=== PATIENT | female | born 1950 | race Caucasian/White ===

== ENCOUNTER → 2019-03-23 | Outpatient (CLI) | payer MEDICARE ==
[2019-03-23 13:49] LABS: HEMATOCRIT 41.6 % (36.0-47.0); MEAN CORPUSCULAR HEMOGLOBIN 30.2 pg (27.0-33.0); MEAN CORPUSCULAR HGB CONC 31.3 g/dl (32.0-36.5); MEAN CORPUSCULAR VOLUME 96.5 fl (80.0-96.0); PLATELET COUNT, AUTOMATED 267 10^3/uL (150-450); RED BLOOD COUNT 4.31 10^6/uL (4.00-5.40); WHITE BLOOD COUNT 6.6 10^3/uL (4.0-10.0)
[2019-03-23 14:03] LABS: ALBUMIN 3.8 GM/DL (3.2-5.2); ALT/SGPT 14 U/L (12-78); BILIRUBIN,TOTAL 0.7 MG/DL (0.2-1.0); BLOOD UREA NITROGEN 19 MG/DL (7-18); CALCIUM LEVEL 8.8 MG/DL (8.8-10.2); CARBON DIOXIDE LEVEL 30 MEQ/L (21-32); CHLORIDE LEVEL 108 MEQ/L (98-107); CHOLESTEROL LEVEL 177 MG/DL (<200); CHOLESTEROL RISK RATIO 4.425 (<5); CREATININE FOR GFR 0.96 MG/DL (0.55-1.30); GLOMERULAR FILTRATION RATE > 60.0 (>45); GLUCOSE, FASTING 99 MG/DL (70-100); HDL CHOLESTEROL 40 MG/DL (>40); LDL CHOLESTEROL 124 MG/DL (<100); NON-HDL-C 137 MG/DL; POTASSIUM SERUM 4.6 MEQ/L (3.5-5.1); SODIUM LEVEL 143 MEQ/L (136-145); TOTAL PROTEIN 6.9 GM/DL (6.4-8.2); TRIGLYCERIDES LEVEL 64 MG/DL (<150)
== END ==
LOC: M PLALAB 10:05
PROVIDERS: ATTEND Family Medicine
DX: Z00.00 Encounter for general adult medical examination without abnormal findings (principal); E78.00 Pure hypercholesterolemia, unspecified

== ENCOUNTER → 2019-04-15 | Outpatient (CLI) | payer MEDICARE ==
--- NOTE | 2019-04-15 11:04 | REPMRS ---
Patient History The patient states she has not had a clinical breast exam in over a year. Patient is postmenopausal. Family history of breast cancer at age 50 in maternal aunt. Took hormonal contraceptives for 15 years. Digital Woman Screen Mammo: April 15, 2019 - Exam #: [id number] Bilateral CC and MLO view(s) were taken. Technologist: Mirta Lindquist, Technologist Prior study comparison: September 15, 2013, bilateral bilat screen digital mammo, performed at [facility] ([facility]). FINDINGS: The breast tissue is heterogeneously dense. This may lower the sensitivity of mammography. There is a moderate amount of heterogeneously dense fibroglandular tissue which is fairly symmetric. There is no interval development of dominant mass, architectural distortion, or grouped microcalcification typical of malignancy. There has been no change in the appearance of the mammogram from the prior studies. 3-D tomosynthesis shows no additional findings. Assessment: BI-RADS/ACR category 1 mammogram. Negative Mammogram. Recommendation Routine screening mammogram of both breasts in 1 year (for women over age 40). This patient's Lifetime Breast Cancer RIsk is estimated at 7.7 %. This mammogram was interpreted with the aid of an FDA-approved computer-aided dectection system. Electronically Signed By: Akbar Claudio MD 04/15/19 [id number]
== END ==
LOC: M WHC 06:45
PROVIDERS: ATTEND Family Medicine
DX: Z12.31 Encounter for screening mammogram for malignant neoplasm of breast (principal)

== ENCOUNTER 2020-04-02 16:36 | Emergency (ER) | payer MEDICARE ==
[~2020-04-02] VITALS: Ht 152.4 cm; Wt 42.3 kg
--- OUTSIDE RECORDS SUMMARY | 2020-04-02 16:42 | CCD ---
Author Author [facility] Organization [facility] Address Unknown Phone Unavailable Care Team Providers Care [facility] Services Specialist Name Role Phone Steven Tomas MD Unavailable Unavailable Steven Tomas MD Unavailable Unavailable Steven Tomas MD Unavailable Unavailable Steven Tomas MD Unavailable Unavailable Steven Tomas MD Unavailable Unavailable Steven Tomas MD Unavailable Unavailable Steven Tomas MD Unavailable Unavailable Steven Tomas MD Unavailable Unavailable Steven Tomsa MD Unavailable Unavailable Steven Tomas MD Unavailable Unavailable Steven Tomas MD Unavailable Unavailable Steven Tomas MD Unavailable Unavailable Steven Tomas MD Unavailable Unavailable Steven Tomas MD Unavailable Unavailable Steven Tomas MD Unavailable Unavailable Steven Tomas MD Unavailable Unavailable Steven Tomas MD Unavailable Unavailable Steven Tomas MD Unavailable Unavailable Steven Tomas MD Unavailable Unavailable Steven Tomas MD Unavailable Unavailable Steven Tomas MD Unavailable Unavailable Steven Tomas MD Unavailable Unavailable Steven Tomas MD Unavailable Unavailable Steven Tomas MD Unavailable Unavailable Steven Tomas MD Unavailable Unavailable Steven Tomas MD Unavailable Unavailable Steven Tomas MD Unavailable Unavailable Steven Tomas MD Unavailable Unavailable Steven Tomas MD Unavailable Unavailable Thom, S Pedro MD Unavailable Unavailable Thom, S Pedro MD Unavailable Unavailable Thom, S Pedro MD Unavailable Unavailable Thom, S Pedro MD Unavailable Unavailable Thom, S Pedro MD Unavailable Unavailable Thom, S Pedro MD Unavailable Unavailable Thom, S Pedro MD Unavailable Unavailable Thom, S Pedro MD Unavailable Unavailable Thom, S Pedro MD Unavailable Unavailable Thom, S Pedro MD Unavailable Unavailable Thom, S Pedro MD Unavailable Unavailable Thom, S Pedro MD Unavailable Unavailable Thom, S Pedro MD Unavailable Unavailable Thom, S Pedro MD Unavailable Unavailable Thom, S Pedro MD Unavailable Unavailable Thom, S Pedro MD Unavailable Unavailable Thom, S Pedro MD Unavailable Unavailable Thom, S Pedro MD Unavailable Unavailable Thom, S Pedro MD Unavailable Unavailable EMERTON, A JUSTIN MD Unavailable Unavailable EMERTON, A JUSTIN MD Unavailable Unavailable EMERTON, A JUSTIN MD Unavailable Unavailable EMERTON, A JUSTIN MD Unavailable Unavailable EMERTON, A JUSTIN MD Unavailable Unavailable EMERTON, A JUSTIN MD Unavailable Unavailable EMERTON, A JUSTIN MD Unavailable Unavailable EMERTON, A JUSTIN MD Unavailable Unavailable EMERTON, A JUSTIN MD Unavailable Unavailable EMERTON, A JUSTIN MD Unavailable Unavailable EMERTON, A JUSTIN MD Unavailable Unavailable EMERTON, A JUSTIN MD Unavailable Unavailable EMERTON, A JUSTIN MD Unavailable Unavailable EMERTON, A JUSTIN MD Unavailable Unavailable EMERTON, A JUSTIN MD Unavailable Unavailable EMERTON, A JUSTIN MD Unavailable Unavailable EMERTON, A JUSTIN MD Unavailable Unavailable EMERTON, A JUSTIN MD Unavailable Unavailable EMERTON, A JUSTIN MD Unavailable Unavailable EMERTON, A JUSTIN MD Unavailable Unavailable EMERTON, A JUSTIN MD Unavailable Unavailable EMERTON, A JUSTIN MD Unavailable Unavailable EMERTON, A JUSTIN MD Unavailable Unavailable EMERTON, A JUSTIN MD Unavailable Unavailable EMERTON, A JUSTIN MD Unavailable Unavailable EMERTON, A JUSTIN MD Unavailable Unavailable EMERTON, A JUSTIN MD Unavailable Unavailable EMERTON, A JUSTIN MD Unavailable Unavailable EMERTON, A JUSTIN MD Unavailable Unavailable EMERTON, A JUSTIN MD Unavailable Unavailable EMERTON, A JUSTIN MD Unavailable Unavailable EMERTON, A JUSTIN MD Unavailable Unavailable EMERTON, A JUSTIN MD Unavailable Unavailable EMERTON, A JUSTIN MD Unavailable Unavailable EMERTON, A JUSTIN MD Unavailable Unavailable EMERTON, A JUSTIN MD Unavailable Unavailable EMERTON, A JUSTIN MD Unavailable Unavailable EMERTON, A JUSTIN MD Unavailable Unavailable EMERTON, A JUSTIN MD Unavailable Unavailable EMERTON, A JUSTIN MD Unavailable Unavailable EMERTON, A JUSTIN MD Unavailable Unavailable EMERTON, A JUSTIN MD Unavailable Unavailable EMERTON, A JUSTIN MD Unavailable Unavailable EMERTON, A JUSTIN MD Unavailable Unavailable EMERTON, A JUSTIN MD Unavailable Unavailable EMERTON, A JUSTIN MD Unavailable Unavailable EMERTON, A JUSTIN MD Unavailable Unavailable EMERTON, A JUSTIN MD Unavailable Unavailable EMERTON, A JUSTIN MD Unavailable Unavailable EMERTON, A JUSTIN MD Unavailable Unavailable EMERTON, A JUSTIN MD Unavailable Unavailable EMERTON, A JUSTIN MD Unavailable Unavailable EMERTON, A JUSTIN MD Unavailable Unavailable EMERTON, A JUSTIN MD Unavailable Unavailable EMERTON, A JUSTIN MD Unavailable Unavailable EMERTON, A JUSTIN MD Unavailable Unavailable EMERTON, A JUSTIN MD Unavailable Unavailable EMERTON, A JUSTIN MD Unavailable Unavailable EMERTON, A JUSTIN MD Unavailable Unavailable EMERTON, A JUSTIN MD Unavailable Unavailable EMERTON, A JUSTIN MD Unavailable Unavailable EMERTON, A JUSTIN MD Unavailable Unavailable EMERTON, A JUSTIN MD Unavailable Unavailable EMERTON, A JUSTIN MD Unavailable Unavailable EMERTON, A JUSTIN MD Unavailable Unavailable EMERTON, A JUSTIN MD Unavailable Unavailable EMERTON, A JUSTIN MD Unavailable Unavailable EMERTON, A JUSTIN MD Unavailable Unavailable EMERTON, A JUSTIN MD Unavailable Unavailable EMERTON, A JUSTIN MD Unavailable Unavailable EMERTON, A JUSTIN MD Unavailable Unavailable EMERTON, A JUSTIN MD Unavailable Unavailable EMERTON, A JUSTIN MD Unavailable Unavailable EMERTON, A JUSTIN MD Unavailable Unavailable NON, PHYSICIAN STAFF Unavailable Unavailable Jennifer Neal MD Unavailable Unavailable Jennifer Neal MD Unavailable Unavailable ÁngelJennifer gill MD Unavailable Unavailable ÁngelJennifer gill MD Unavailable Unavailable ÁngelJennifer gill MD Unavailable Unavailable ÁngelJennifer gill MD Unavailable Unavailable ÁngelJennifer gill MD Unavailable Unavailable ÁngelJennifer gill MD Unavailable Unavailable ÁngelJennifer gill MD Unavailable Unavailable ÁngelJennifer gill MD Unavailable Unavailable ÁngelJennifer gill MD Unavailable Unavailable ÁngelJennifer MD Unavailable Unavailable ÁngelJennifer MD Unavailable Unavailable ÁngelJennifer MD Unavailable Unavailable ÁngelJennifer MD Unavailable Unavailable ÁngelJennifer MD Unavailable Unavailable ÁngelJennifer MD Unavailable Unavailable ÁngelJennifer gill MD Unavailable Unavailable ÁngelJennifer gill MD Unavailable Unavailable ÁngelJennifer MD Unavailable Unavailable Ángel, Noaman MD Unavailable Unavailable Ángel, Jennifer MD Unavailable Unavailable Ángel, Jennifer MD Unavailable Unavailable Ángel, Jennifer MD Unavailable Unavailable Ángel, Noalissa MD Unavailable Unavailable Ángel, Noalissa MD Unavailable Unavailable Ángel, Noaman MD Unavailable Unavailable Ángel, Noalissa MD Unavailable Unavailable Ángel, Noalissa MD Unavailable Unavailable Re-disclosure Warning The records that you are about to access may contain information from federally-assisted alcohol or drug abuse programs. If such information is present, then the following federally mandated warning applies: This information has been disclosed to you from records protected by federal confidentiality rules (42 CFR part 2). The federal rules prohibit you from making any further disclosure of this information unless further disclosure is expressly permitted by the written consent of the person to whom it pertains or as otherwise permitted by 42 CFR part 2. A general authorization for the release of medical or other information is NOT sufficient for this purpose. The Federal rules restrict any use of the information to criminally investigate or prosecute any alcohol or drug abuse patient.The records that you are about to access may contain highly sensitive health information, the redisclosure of which is protected by Article 27-F of the [facility] Public Health law. If you continue you may have access to information: Regarding HIV / AIDS; Provided by facilities licensed or operated by the [facility] Office of Mental Health; or Provided by the [facility] Office for People With Developmental Disabilities. If such information is present, then the following [facility] mandated warning applies: This information has been disclosed to you from confidential records which are protected by state law. State law prohibits you from making any further disclosure of this information without the specific written consent of the person to whom it pertains, or as otherwise permitted by law. Any unauthorized further disclosure in violation of state law may result in a fine or assisted sentence or both. A general authorization for the release of medical or other information is NOT sufficient authorization for further disc losure. Allergies and Adverse Reactions Type Description Substance Reaction Status Data Source(s ) No Known Environmental Allergies No Known Environmental Al lergies [facility] No Known Food Allergies No Known Food Allergies [facility] Drug allergy [facility] Family History Family Member Name Family Member Gender Family Member Status Date o f Status Description Data Source(s) Unknown Unknown Problem [facility] ([facility] Unknown Male Problem [facility] ([facility] Encounters Encounter Providers Location Date Indications Data Source(s ) Outpatient Attender: Jennifer Neal MDConsultant: STAFF NON 12/01/2019 06:45:00 AM EDT - 12/01/2019 09:00:00 AM EDT [facility] Patient discharged. Outpatient Attender: Jennifer Neal MDConsultant: STAFF NON 11/17/2019 07:15:00 AM EDT - 11/17/2019 10:52:00 AM EDT [facility] Patient discharged. Outpatient Attender: Pedro Tomas MD Main Office 05/11/2019 01:45:00 PM EDT [facility] ([facility]) Outpatient Referrer: JUSTIN DACOSTA MD 04/27/2019 11:13:[address] [facility] Medications Medication Brand Name Start Date Product Form Dose Route Admi nistrative Instructions Pharmacy Instructions Status Indications Reaction Description Data Source(s) Suprep Bowel Prep Kit Suprep Bowel Prep Kit 05/11/2019 12:00:00 AM EDT active [facility] ([facility]) Insurance Providers Payer name Policy type / Coverage type Policy ID Covered libertarian ID Covered libertarian's relationship to [place] Policy [place] Plan Information MEDICARE BLUE O 306 [id number] SP [id number] [facility] MCR -[id number] [facility] [id number] S [id number] [id number] MEDICARE BLUE PPO [id number] SP [id number] Medicare [place] Gov't Servi Medicare Primary [id number] Self [id number] Medicare Part B Medicare Primary [id number] Self [id number] Umr Commercial [id number] [facility] [id number] [id number] [id number] Problems, Conditions, and Diagnoses Code Display Name Description Problem Type Effective Dates Data Source(s) [id number] Screening for malignant neoplasm of colo n Screening for malignant neoplasm of colon Problem 05/11/2019 12:00:00 AM EDT [facility] ([facility]) [id number] Primary open-angle glaucoma, left eye, s evere stage Primary open-angle glaucoma, left eye, severe stage Diagnosis 12/01/2019 06:45:00 AM EDT [facility] Results ID Date Data Source [id number] 12/20/2019 08:15:00 [place] [address] OPERATIVE SUMMARYNAME: KAREN Archibald DATE OF : 1950ATTENDING PHYS: Jennifer Neal MD DATE: 12/01/19 MR#: [id number] OF PROCEDURE: 12/01/2019PREOPERATIVE DIAGNOSIS: Malposition of the XEN gel stent, left eye.POSTOPERATIVE DIAGNOSIS: Malposition of the XEN gel stent, left eye.PROCEDURE: Attempt at repositioning and placement of a new XEN gel stent.SURGEON: Jennifer Neal MD.CORRECTIONAL OFFICER SERGEANT: None.COMPLICATIONS: None.DETAILS OF PROCEDURE:The patient was brought to the operating room and lied in supine position. The eye was preppedand draped in a sterile fashion for ophthalmic surgery, following which eye was then examinedunder the microscope. Because the gel stent was noticed to have advanced more in the anteriorchamber, it was attempted to pull the gel stent backwards, but it was not possible. At that time, itwas decided to make a temporal clear corneal incision followed by injection of the viscoelastic. Thepreviously placed gel stent was removed, and was replaced using the internal approach over theneedle of the surfacing underneath the conjunctiva 2 mm behind the limbus. The gel stent was thenintroduced, excellent position was noted. The introducer was then retracted, excess viscoelastic wasaspirated, wound was hydrated. At the end of the case, mitomycin 0.1 cc was given at 4 mg/ccposterior to the bleb. The lid speculum was removed, and patient was returned to the recovery roomin stable condition and the surgery was explained.DD: Jennifer Neal MD 12/18/19 18:02DT: DAVID 12/20/19 08:09DS: Jennifer Neal MD 12/23/19 13:44 [address] [place] [address] OPERATIVE SUMMARYNAME: KAREN Archibald DATE OF : 1950ATTENDING PHYS: Jennifer Neal MD DATE: 12/01/19 MR#: [id number] 2 Name Value Range Interpretation Code Description Data Juliet rce(s) Supporting Document(s) ID Date Data Source [id number] 11/22/2019 12:49:00 [place] [address] OPERATIVE SUMMARYNAME: KAREN Archibald DATE OF : 1950ATTENDING PHYS: Jennifer Neal MD DATE: 11/17/19 MR#: [id number] OF PROCEDURE: 11/17/2019PREOPERATIVE DIAGNOSIS: Glaucoma, left eye.POSTOPERATIVE DIAGNOSIS: Glaucoma, left eye.PROCEDURE: Placement of a XEN gel stent, serial #[id number], left eye using the externalapproach.SURGEON: Jennifer Neal MD.CORRECTIONAL OFFICER SERGEANT: None.COMPLICATIONS: None.INDICATION: Glaucoma and intolerance to drops.DETAILS OF PROCEDURE:The patient was brought to the operating room and laid in the supine position. The eye was preppedand draped in a sterile fashion for ophthalmic surgery, following which a lid speculum was placed.Lidocaine gel was placed on the eye surface, following which the XEN implant was removed fromthe cartridge. The stent was advanced and marked with a sterile marker, following which the stentwas refracted and the XEN implant was inserted into the subconjunctival space 7-8 mm away fromthe pre-marked point of entry which was about 2.5 mm behind the limbus. The conjunctiva waspinched. The XEN stent was inserted into the subconjunctival space and it was then rotatedvertically to enter the sclera about 2 mm behind the limbus where the subconjunctival entry wasabout 6-7 mm away from the scleral entry. The needle was advanced and the XEN stent wasdeployed. The flower shop manager was retracted. The XEN implant was noted to be in good position. The eyewas gently massaged and it was noted that the stent was working. 0.4 mg % of mitomycin, 0.1 cc ofwhich was then placed subconjunctivally away from the stent posteriorly. Antibiotic and steroiddrops were placed, the lid speculum was then removed and the patient was then discharged to therecovery room in stable condition where postop instructions were given. [address] [place] [address] OPERATIVE SUMMARYNAME: KAREN Archibald DATE OF : 1950ATTENDING PHYS: Jennifer Neal MD DATE: 11/17/19 MR#: [id number]: Jennifer Neal MD 11/22/19 11:50DT: SSR 11/22/19 12:48DS: Jennifer Neal MD 11/24/19 15:55 2 Name Value Range Interpretation Code Description Data Juliet rce(s) Supporting Document(s) ID Date Data Source [id number] 11/12/2019 07:15:00 AM EDT [facility] Name Value Range Interpretation Code Description Data Juliet rce(s) Supporting Document(s) [facility] This lab was ordered by [facility] and reported by [employer]. Procedure Vital Signs ID Date Data Source UNK Name Value Range Interpretation Code Description Data Source(s) Body weight 80.741 kg 80.741 kg [facility] ([facility]) Body mass index (BMI) [Ratio] 33.6 kg/m2 33.6 k g/m2 [facility] ([facility]) Heart rate 56 /min 56 /min [facility] ([facility]) Diastolic blood pressure 88 mm[Hg] 88 mm[Hg] [facility] ([facility]) Systolic blood pressure 134 mm[Hg] 134 mm[Hg] M EDENT ([facility]) Body weight 178.00 [lb_av] 178.00 [lb_av] MEDEN T ([facility]) Body height 61 [in_i] 61 [in_i] [facility] ([facility]) 5'1" ID Date Data Source [id number] 12/23/2019 01:49:07 PM EDT [facility] Name Value Range Interpretation Code Description Data Source(s) WEIGHT RECORDED 175.00 pounds 175.00 pounds [facility] Height 60 Inches 060 Inches [facility] ID Date Data Source [id number] 11/24/2019 04:01:42 PM EDT [facility] Name Value Range Interpretation Code Description Data Source(s) WEIGHT RECORDED 175.00 pounds 175.00 pounds [facility] Height 60 Inches 060 Inches [facility]
--- NOTE | 2020-04-02 17:30 | REP ---
INDICATION: bradycardia. COMPARISON: None. TECHNIQUE: Upright AP portable chest x-ray. FINDINGS: Monitoring electrodes are seen. The lungs are well inflated and clear. The pleural angles are sharp. Heart size is borderline. Pulmonary vasculature is not increased. No significant bony abnormality. IMPRESSION: Borderline heart size. Otherwise no acute disease. <Electronically signed by Akbar Claudio > 04/02/20 [id number]
[2020-04-02 17:31] LABS: HEMATOCRIT 41.1 % (36.0-47.0); HEMOGLOBIN 13.3 g/dl (12.0-15.5); MEAN CORPUSCULAR HEMOGLOBIN 30.7 pg (27.0-33.0); MEAN CORPUSCULAR HGB CONC 32.4 g/dl (32.0-36.5); MEAN CORPUSCULAR VOLUME 94.9 fl (80.0-96.0); PLATELET COUNT, AUTOMATED 270 10^3/uL (150-450); RED BLOOD COUNT 4.33 10^6/uL (4.00-5.40); WHITE BLOOD COUNT 8.2 10^3/uL (4.0-10.0)
[2020-04-02 18:10] LABS: BLOOD UREA NITROGEN 19 MG/DL (7-18); CALCIUM LEVEL 9.7 MG/DL (8.8-10.2); CARBON DIOXIDE LEVEL 34 MEQ/L (21-32); CHLORIDE LEVEL 104 MEQ/L (98-107); CK-MB VALUE MASS < 1.0 NG/ML (<3.6); CPK CREATINE PHOSPHOKINASE 74 U/L (26-192); CREATININE FOR GFR 0.97 MG/DL (0.55-1.30); GLOMERULAR FILTRATION RATE > 60.0 (>39); GLUCOSE, FASTING 126 MG/DL (70-100); MB/CK RELATIVE INDEX 1.35 (< OR =4); POTASSIUM SERUM 4.4 MEQ/L (3.5-5.1); SODIUM LEVEL 141 MEQ/L (136-145); TROPONIN I < 0.02 NG/ML (< 0.10)
--- OUTSIDE RECORDS SUMMARY | 2020-04-02 18:32 | CCD ---
Author Author [facility] Organization [facility] Address Unknown Phone Unavailable Care Team Providers Care Accountant Manager Name Role Phone Steven Tomas MD Unavailable [...] Unavailable Unavailable NON, PHYSICIAN STAFF Unavailable Unavailable ÁngelJennifer gill MD Unavailable Unavailable [...] Unavailable Ángel, Noaman MD Unavailable Unavailable Ángel, Noaman MD Unavailable Unavailable Ángel, Noaman MD Unavailable Unavailable Ángel, Noaman MD Unavailable Unavailable Ángel, Noaman MD Unavailable Unavailable Ángel, Noaman MD Unavailable Unavailable Ángel, Noaman MD Unavailable Unavailable Ángel, Noaman MD Unavailable Unavailable Ángel, Noaman MD Unavailable Unavailable Ángel, Noaman MD Unavailable Unavailable Ángel, Noaman MD Unavailable Unavailable Ángel, Noaman MD Unavailable Unavailable Ángel, Noaman MD Unavailable Unavailable Re-disclosure Warning The records [...] is protected by Article 27-F of the [facility] Public Health law. If you continue you may have access to information: Regarding HIV / AIDS; Provided by facilities licensed or operated by the [facility] Office of Mental Health; or Provided by the [facility] Office for People With Developmental Disabilities. If such information is present, then the following [facility] mandated warning applies: This information has [...] law may result in a fine or retirement sentence or both. A general authorization for the release of medical or other information is NOT sufficient authorization for further disc losure. Allergies and Adverse Reactions Type Description Substance Reaction Status Data Source(s ) No Known Environmental Allergies No Known Environmental Al lergies [facility] No Known Food Allergies No Known Food Allergies [facility] Drug allergy [facility] Family History Family Member Name Family Member Gender Family Member Status Date o f Status Description Data Source(s) Unknown Unknown Problem [facility] ([facility]) Unknown Male Problem [facility] ([facility]) Encounters Encounter Providers Location Date Indications Data Source(s ) Outpatient Attender: Jennifer Neal MDConsultant: STAFF NON 12/01/2019 06:45:00 AM EDT - 12/01/2019 09:00:00 AM EDT [facility] Patient discharged. Outpatient Attender: Caridadalissa Ángel MDConsultant: STAFF NON 11/17/2019 07:15:00 AM EDT - 11/17/2019 10:52:00 AM EDT [facility] Patient discharged. Outpatient Attender: Pedro Tomas MD Main Office 05/11/2019 01:45:00 PM EDT [facility] ([facility]) Outpatient Referrer: JUSTIN DACOSTA MD 04/27/2019 11:13:00 AM EST [facility] Medications Medication Brand Name Start Date Product Form Dose Route Admi nistrative Instructions Pharmacy Instructions Status Indications Reaction Description Data Source(s) Suprep Bowel Prep Kit Suprep Bowel Prep Kit 05/11/2019 12:00:00 AM EDT active [facility] ([facility]) Insurance Providers Payer name Policy type / Coverage type Policy ID Covered alliance party ID Covered alliance party's relationship to trujillo Policy [place] Plan Information MEDICARE BLUE PPO 306 [id number] SP [id number] [facility] SHIELD MCR -[id number] 18 [id number] [facility] [id number] S [id number] MEDICARE BLUE PPO [id number] SP [id number] [place] Gov[place] Medicare Primary [id number] Self [id number] Medicare Part B Medicare Primary [id number] Self [id number] [facility] Commercial [id number] [facility] [id number] [id number] 2 [id number] Problems, Conditions, and Diagnoses Code Display Name Description Problem Type Effective Dates Data Source(s) 147981213 Screening for malignant neoplasm of colo n Screening for malignant neoplasm of colon Problem 05/11/2019 12:00:00 AM EDT [facility] ([facility]) [id number] Primary open-angle glaucoma, left eye, s evere stage Primary open-angle glaucoma, left eye, severe stage Diagnosis 12/01/2019 06:45:00 AM EDT [facility] Results ID Date Data Source [id number] 12/20/2019 08:15:00 [place] [address] OPERATIVE SUMMARYNAME: KAREN Archibald DATE OF : 1950ATTENDING PHYS: Jennifer Neal MD DATE: 12/01/19 MR#: [id number] OF PROCEDURE: 12/01/2019PREOPERATIVE DIAGNOSIS: Malposition of the XEN gel stent, left eye.POSTOPERATIVE DIAGNOSIS: Malposition of the XEN gel stent, left eye.PROCEDURE: Attempt at repositioning and placement of a new XEN gel stent.SURGEON: Jennifer Neal MD.JEWELRY ESTIMATOR: None.COMPLICATIONS: None.DETAILS OF PROCEDURE:The patient was brought [...] 08:09DS: Jennifer Neal MD 12/23/19 13:44 [address] [place] [address] OPERATIVE SUMMARYNAME: KAREN Archibald DATE OF : 1950ATTENDING PHYS: Jennifer Neal MD DATE: 12/01/19 MR#: [id number] 2 Name Value Range Interpretation Code Description Data Juliet rce(s) Supporting Document(s) ID Date Data Source [id number] 11/22/2019 12:49:00 [place] [address] OPERATIVE SUMMARYNAME: KAREN Archibald DATE OF : 1950ATTENDING PHYS: Jennifer Neal MD DATE: 11/17/19 MR#: [id number] OF PROCEDURE: 11/17/2019PREOPERATIVE DIAGNOSIS: Glaucoma, left eye.POSTOPERATIVE DIAGNOSIS: Glaucoma, left eye.PROCEDURE: Placement of a XEN gel stent, serial #[id number], left eye using the externalapproach.SURGEON: Jennifer Neal MD.JEWELRY ESTIMATOR: None.COMPLICATIONS: None.INDICATION: Glaucoma and intolerance to drops.DETAILS [...] advanced and the XEN stent wasdeployed. The overlock hemmer was retracted. The XEN implant was noted [...] condition where postop instructions were given. [address] [place] [address] OPERATIVE SUMMARYNAME: KAREN Archibald DATE OF : 1950ATTENDING PHYS: Jennifer Neal MD DATE: 11/17/19 MR#: [id number]: Jennifer Neal MD 11/22/19 11:50DT: SSR 11/22/19 12:48DS: Jennifer Neal MD 11/24/19 15:55 2 Name Value Range Interpretation Code Description Data Juliet rce(s) Supporting Document(s) ID Date Data Source [id number] 11/12/2019 07:15:00 AM EDT [facility] Name Value Range Interpretation Code Description Data Juliet rce(s) Supporting Document(s) SARS-CoV-2 (COVID19) [facility] This lab was ordered by [facility] and reported by [facility]. Procedure Vital Signs ID Date Data Source UNK Name Value Range Interpretation Code Description Data Source(s) Body weight 80.741 kg 80.741 kg [facility] Body mass index (BMI) [Ratio] 33.6 kg/m2 33.6 k g/m2 [facility] ([facility]) Heart rate 56 /min 56 /min [facility] ([facility]) Diastolic blood pressure 88 mm[Hg] 88 mm[Hg] [facility] ([facility]) Systolic blood pressure 134 mm[Hg] 134 mm[Hg] M [facility] ([facility]) Body weight 178.00 [lb_av] 178.00 [lb_av] [facility] T ([facility]) Body height 61 [in_i] 61 [in_i] [facility] 5'1" ID Date Data Source [id number] 12/23/2019 01:49:07 PM EDT [facility] Name Value Range Interpretation Code Description Data Source(s) WEIGHT RECORDED 175.00 pounds 175.00 pounds [facility] Height 60 Inches 060 Inches [facility] ID Date Data Source [id number] 11/24/2019 04:01:42 PM EDT [facility] Name Value Range Interpretation Code Description Data Source(s) WEIGHT RECORDED 175.00 pounds 175.00 pounds [facility] Height 60 Inches 060 Inches [facility]
[2020-04-02] MEDS ORDERED: COMB0.2S (18:36)
[2020-04-02] MEDS ORDERED: BIMA01SOL (18:36)
[2020-04-02] MEDS ORDERED: VITMTA PO (18:38)
[2020-04-02] MEDS ORDERED: D31000TA2 PO (18:38)
[2020-04-02] MEDS ORDERED: ECHI80CA PO (18:38)
[2020-04-02 18:55] VITALS: BP 110/67
--- NOTE | 2020-04-02 21:04 | ECGEPIP ---
[facility] - ED Test Date: 2020-04-02 Pat Name: BETO JONES Department: Room: - Gender: Female Hone Operator: TY : 1950 Requested By: Ronald Jara Order Number: [id number] Reading MD: Alison Bustillos Measurements Intervals [place] Rate: 60 P: 45 NC: 152 QRS: -11 QRSD: 88 T: 24 QT: 377 QTc: 377 Interpretive Statements SINUS RHYTHM No prior Electronically Signed on 04-02-2020 21:04:25 EST by Alison Bustillos
== END 2020-04-02 18:59 | disposition home or self-care (01) ==
LOC: M ED 16:36
DX: R00.1 Bradycardia, unspecified (principal); R01.1 Cardiac murmur, unspecified; T44.7X5A Adverse effect of beta-adrenoreceptor antagonists, initial encounter; X58.XXXA Exposure to other specified factors, initial encounter; Y92.89 Other specified places as the place of occurrence of the external cause; H40.9 Unspecified glaucoma

== ENCOUNTER → 2020-06-08 | Outpatient (CLI) | payer MEDICARE ==
[~2020-06-08] MED LIST: BIMA01SOL; COMB0.2S; D31000TA2 PO; ECHI80CA PO; VITMTA PO
[2020-06-08 17:24] LABS: FREE T3 2.8 PG/ML (2.2-4.0); FREE T4 0.88 NG/DL (0.76-1.46); THYROID STIMULATING HORMONE 5.22 uIU/ML (0.358-3.740)
== END ==
LOC: M WUC 13:54
PROVIDERS: ATTEND Family Medicine
DX: E07.9 Disorder of thyroid, unspecified (principal)

== ENCOUNTER → 2021-01-05 | Outpatient (CLI) | payer MEDICARE ==
[2021-01-05 16:37] LABS: FREE T3 2.9 PG/ML (2.2-4.0); FREE T4 1.02 NG/DL (0.76-1.46); THYROID STIMULATING HORMONE 4.98 uIU/ML (0.358-3.740)
== END ==
LOC: M WUC 11:51
PROVIDERS: ATTEND Family Medicine
DX: E07.9 Disorder of thyroid, unspecified (principal)

== ENCOUNTER → 2021-10-01 | Outpatient (CLI) | payer MEDICARE ==
[~2021-10-01] MED LIST changes: -D31000TA2 PO; +VITA100093 PO
[2021-10-01 11:14] LABS: FREE T3 2.6 PG/ML (2.2-4.0); FREE T4 0.72 NG/DL (0.76-1.46); THYROID STIMULATING HORMONE 11.5 uIU/ML (0.358-3.740)
== END ==
LOC: M WUC 08:17
PROVIDERS: ATTEND Family Medicine
DX: E07.9 Disorder of thyroid, unspecified (principal)

== ENCOUNTER → 2021-11-30 | Outpatient (REF) | payer MEDICARE ==
[2021-11-30 13:57] LABS: FREE T4 0.99 NG/DL (0.76-1.46); THYROID STIMULATING HORMONE 4.94 uIU/ML (0.358-3.740)
[2021-11-30 14:19] LABS: FREE T3 2.9 PG/ML (2.2-4.0)
== END ==
LOC: M WUC 12:40
PROVIDERS: ATTEND Family Medicine
DX: E07.9 Disorder of thyroid, unspecified (principal)

== ENCOUNTER → 2022-03-01 | Outpatient (CLI) | payer MEDICARE ==
[2022-03-01 13:01] LABS: FREE T3 2.9 PG/ML (2.3-4.2); THYROID STIMULATING HORMONE 4.178 uIU/ML (0.55-4.78)
== END ==
LOC: M WUC 10:13
PROVIDERS: ATTEND Family Medicine
DX: E03.9 Hypothyroidism, unspecified (principal)

== ENCOUNTER → 2022-08-09 | Outpatient (CLI) | payer MEDICARE ==
[2022-08-09 13:08] LABS: BASO % 0.6 % (0.0-1.0); EOS # 0.5 10^3/uL (0.0-0.5); EOS % 6.6 % (0.0-3.0); HEMATOCRIT 40.3 % (36.0-47.0); HEMOGLOBIN 13.1 g/dl (12.0-15.5); LYMPH # 1.8 10^3/uL (1.5-5.0); LYMPH % 24.8 % (24.0-44.0); MEAN CORPUSCULAR HGB CONC 32.5 g/dl (32.0-36.5); MEAN CORPUSCULAR VOLUME 95.3 fl (80.0-96.0); MONO # 0.5 10^3/uL (0.0-0.8); MONO % 7.4 % (2.0-8.0); NEUTROPHILS # 4.3 10^3/uL (1.5-8.5); NEUTROPHILS % 60.3 % (36.0-66.0); PLATELET COUNT, AUTOMATED 266 10^3/uL (150-450); RED BLOOD COUNT 4.23 10^6/uL (4.00-5.40); WHITE BLOOD COUNT 7.2 10^3/uL (4.0-10.0)
[2022-08-09 13:38] LABS: ALBUMIN 3.8 G/DL (3.2-5.2); BILIRUBIN,TOTAL 0.7 MG/DL (0.3-1.2); CALCIUM LEVEL 9.4 MG/DL (8.3-10.6); CHOLESTEROL RISK RATIO 4.09 (<5); CREATININE FOR GFR 1.02 MG/DL (0.55-1.30); GLOMERULAR FILTRATION RATE 56.6 (>39); HDL CHOLESTEROL 41.5 MG/DL (>40); LDL CHOLESTEROL 113.3 MG/DL (<100); NON-HDL-C 128.5 MG/DL; POTASSIUM SERUM 4.4 MMOL/L (3.5-5.1); TOTAL PROTEIN 6.6 G/DL (5.7-8.2)
[2022-08-09 13:39] LABS: FREE T4 0.97 NG/DL (0.89-1.76); TOTAL T3 104.3 NG/DL (60.0-181.0)
[2022-08-09 13:40] LABS: FREE T3 3.2 PG/ML (2.3-4.2); THYROID STIMULATING HORMONE 4.677 uIU/ML (0.55-4.78)
== END ==
LOC: M WUC 09:38
PROVIDERS: ATTEND Family Medicine
DX: Z00.00 Encounter for general adult medical examination without abnormal findings (principal); E03.9 Hypothyroidism, unspecified

== ENCOUNTER → 2023-08-08 | Outpatient (REF) | payer MEDICARE ==
[2023-08-08 14:44] LABS: FREE T4 1.25 NG/DL (0.89-1.76)
[2023-08-08 14:45] LABS: THYROID STIMULATING HORMONE 4.214 uIU/ML (0.55-4.78)
[2023-08-08 15:40] LABS: FREE T3 2.8 PG/ML (2.3-4.2)
== END ==
LOC: M LABWUC 13:10
PROVIDERS: ATTEND Family Medicine
DX: E03.9 Hypothyroidism, unspecified (principal)